=== PATIENT | male | born 1960 | race Caucasian/White ===

== ENCOUNTER 2017-02-09 11:52 | Emergency (ER) | payer BC ==
[2017-02-09] MEDS ORDERED: FISH OIL 1,0001 EA10 PO (14:54)
== END 2017-02-09 16:23 ==
LOC: EDMED 11:52
PROC: 0HQFXZZ Repair Right Hand Skin, External Approach (ICD-10-PCS; principal; 2017-02-09)
DX: S61.012A Laceration without foreign body of left thumb without damage to nail, initial encounter (principal); S61.210A Laceration without foreign body of right index finger without damage to nail, initial encounter; S61.212A Laceration without foreign body of right middle finger without damage to nail, initial encounter; Z23 Encounter for immunization; W27.1XXA Contact with garden tool, initial encounter; Y92.019 Unspecified place in single-family (private) house as the place of occurrence of the external cause